=== PATIENT | female | born 1955 | race Caucasian/White ===

== ENCOUNTER 2020-04-15 14:07 | Outpatient (CLI) | payer MEDICARE ==
--- NOTE | 2020-04-15 14:10 | XRAY Report ---
PROCEDURE: Chest 2 View X-Ray INDICATIONS: COUGH// FEVER AND CHILLS TECHNIQUE: 2 view(s) of the chest. COMPARISON: None. FINDINGS: Surgical changes and devices: Cervical fixation plate. Lungs and pleura: No pleural effusions or pneumothorax. Mild appearance of patchy coarsened opacitie s within the bases. Mediastinum: Mediastinal contours are normal. Heart size is enlarged. Bones and chest wall: No suspicious bony abnormalities. Soft tissues appear unremarkable. IMPRESSION: Mild appearance of patchy coarsened bibasilar opacities. Pelvis could represent dependen t changes, developing areas of airspace disease such as pneumonia and/or atelectasis cannot be exclud ed. As clinically indicated, CT chest may be obtained for additional evaluation. Reviewed by: Suri Sung MD on 04/15/2020 2:08 PM PDT Approved by: Suri Sung MD on 04/15/2020 2:08 PM PDT Station ID: [id number]
== END 2020-04-15 23:59 | disposition home or self-care (01) ==
LOC: DI.S 14:07
PROVIDERS: ATTEND Physician Assistant Medical
DX: R91.8 Other nonspecific abnormal finding of lung field (principal)
CPT/HCPCS: 71046